=== PATIENT | female | born 1955 | race Caucasian/White ===

== ENCOUNTER → 2017-04-01 | Outpatient (REF) | payer OTHER ==
[~2017-04-01] MED LIST: AMOX500C PO; HYDR12.55 PO; IBUP60TA PO; LISI-538 PO; LORT5TAB PO; METO1TAB32 PO; MOM30SS PO; TYLE325T5 PO
[2017-04-01 17:52] LABS: BASO % 0.5 % (0.0-1.0); EOS # 0.1 K/mm3 (0.0-0.50); EOS % 0.8 % (0.0-3.0); LARGE UNSTAINED CELL # 0.1 K/mm3 (0.0-0.4); LARGE UNSTAINED CELL % 1.1 % (0.0-4.0); MEAN CORPUSCULAR HEMOGLOBIN 32.8 pg (27.0-33.0); MEAN CORPUSCULAR HGB CONC 34.5 g/dl (32.0-36.5); MEAN CORPUSCULAR VOLUME 95.2 fl (80.0-96.0); MONO # 0.4 K/mm3 (0.0-0.8); MONO % 4.6 % (0.0-5.0); NEUTROPHILS # 5.8 K/mm3 (1.8-7.7); PLATELET COUNT, AUTOMATED 446 k/mm3 (150-450); RED CELL DISTRIBUTION WIDTH 12.4 % (11.5-14.5); WHITE BLOOD COUNT 8.3 K/mm3 (4.0-10.0)
[2017-04-01 18:26] LABS: ALBUMIN 3.7 GM/DL (3.2-5.2); ALBUMIN/GLOBULIN RATIO 1.19 (1.00-1.93); ALKALINE PHOSPHATASE 92 U/L (45-117); ALT/SGPT 19 U/L (12-78); ANION GAP 7 MEQ/L (8-16); AST/SGOT 8 U/L (15-37); BILIRUBIN,TOTAL 0.6 MG/DL (0.2-1.0); BLOOD UREA NITROGEN 7 MG/DL (7-18); CALCIUM LEVEL 8.9 MG/DL (8.8-10.2); CARBON DIOXIDE LEVEL 28 MEQ/L (21-32); CHLORIDE LEVEL 98 MEQ/L (98-107); CHOLESTEROL LEVEL 200 MG/DL (<200); CREATININE FOR GFR 0.51 MG/DL (0.55-1.02); GLOMERULAR FILTRATION RATE > 60.0 (>45); GLUCOSE, FASTING 92 MG/DL (80-110); POTASSIUM SERUM 4.6 MEQ/L (3.5-5.1); SODIUM LEVEL 133 MEQ/L (136-145); TOTAL PROTEIN 6.8 GM/DL (6.4-8.2); TRIGLYCERIDES LEVEL 113 MG/DL (<150)
== END ==
LOC: M SFHCCLAY 13:27
PROVIDERS: ATTEND Physician Assistant
DX: I10 Essential (primary) hypertension (principal); M81.0 Age-related osteoporosis without current pathological fracture; Z78.0 Asymptomatic menopausal state

== ENCOUNTER → 2018-09-06 | Outpatient (CLI) | payer OTHER ==
--- NOTE | 2018-09-06 18:11 | REP ---
Clinical: Hypertension. Technique: PA and lateral. Comparison: 12/31/2013. Findings: Mediastinum and cardiac silhouette are within normal limits and stable. Lung warren demonstrate chronic stable interstitial changes. Linear fibroatelectatic changes in the left base identified on lateral radiograph. No effusion. No pneumothorax. Skeletal structures demonstrate advanced osteopenia and degenerative changes with subtle compression deformities suggested of multiple mid-thoracic vertebral bodies. The patient is noted to be status post left mastectomy and axillary node dissection. Impression: 1. Linear fibroatelectatic changes at the left base best identified on lateral radiograph. 2. Osteopenia and degenerative changes with findings to suggest subtle compression deformities of multiple thoracic vertebral bodies which are of indeterminate age.
--- NOTE | 2018-09-06 18:13 | REP ---
Clinical: Osteoporosis with possible pathologic fracture. Technique: AP, lateral, bilateral oblique and coned-down views of the lumbosacral spine. Findings: Evaluation is severely limited due to osteopenia, diffuse advanced multilevel degenerative changes and overlying soft tissue opacities. Multiple lumbar compression deformities of indeterminate age are suggested. Impression: Advanced osteopenia and degenerative changes with multilevel compression deformities of indeterminate age. Consider further evaluation with CT or MRI if necessary.
--- NOTE | 2018-09-06 18:17 | REP ---
Clinical: Osteoporosis. Evaluate for pathological fracture. Technique: AP, lateral, swimmers views of the thoracic spine. Findings: Evaluation is limited by advanced osteopenia, multilevel degenerative changes, and technique. Multilevel compression deformities of indeterminate age are identified. Impression: Advanced osteopenia and degenerative changes with multilevel compression deformities of indeterminate age. Consider CT or MRI if further evaluation is necessary.
== END ==
LOC: M CLY 09:34
PROVIDERS: ATTEND Physician Assistant
DX: I10 Essential (primary) hypertension (principal); M54.5 Low back pain; M81.0 Age-related osteoporosis without current pathological fracture; M85.9 Disorder of bone density and structure, unspecified

== ENCOUNTER → 2018-09-06 | Outpatient (REF) | payer OTHER ==
[2018-09-06 17:06] LABS: BASO % 0.3 % (0.0-1.0); EOS % 0.2 % (0.0-3.0); HEMATOCRIT 40.3 % (36.0-47.0); HEMOGLOBIN 14.7 g/dl (12.0-15.5); LYMPH # 1.4 10^3/uL (1.5-4.5); LYMPH % 14.8 % (24.0-44.0); MEAN CORPUSCULAR HEMOGLOBIN 32.7 pg (27.0-33.0); MEAN CORPUSCULAR HGB CONC 36.5 g/dl (32.0-36.5); MEAN CORPUSCULAR VOLUME 89.8 fl (80.0-96.0); MONO # 0.8 10^3/uL (0.0-0.8); MONO % 8.2 % (0.0-5.0); NEUTROPHILS # 6.9 10^3/uL (1.8-7.7); NEUTROPHILS % 75.8 % (36.0-66.0); PLATELET COUNT, AUTOMATED 417 10^3/uL (150-450); RED BLOOD COUNT 4.49 10^6/uL (4.00-5.40); WHITE BLOOD COUNT 9.2 10^3/uL (4.0-10.0)
[2018-09-06 17:10] LABS: ALBUMIN 3.6 GM/DL (3.2-5.2); ALT/SGPT 22 U/L (12-78); BILIRUBIN,TOTAL 0.8 MG/DL (0.2-1.0); BLOOD UREA NITROGEN 6 MG/DL (7-18); CALCIUM LEVEL 8.8 MG/DL (8.8-10.2); CARBON DIOXIDE LEVEL 30 MEQ/L (21-32); CHLORIDE LEVEL 86 MEQ/L (98-107); CHOLESTEROL LEVEL 141 MG/DL (<200); CHOLESTEROL RISK RATIO 3.065 (<5); CREATININE FOR GFR 0.51 MG/DL (0.55-1.30); GLOMERULAR FILTRATION RATE > 60.0 (>45); GLUCOSE, FASTING 105 MG/DL (70-100); HDL CHOLESTEROL 46 MG/DL (>40); LDL CHOLESTEROL 79 MG/DL (<100); NON-HDL-C 95 MG/DL; NT-PRO BNP 84 PG/ML (<125); POTASSIUM SERUM 3.6 MEQ/L (3.5-5.1); SODIUM LEVEL 125 MEQ/L (136-145); TOTAL 25(OH) VITAMIN D 49.5 NG/ML (30.0-100.0); TOTAL PROTEIN 6.3 GM/DL (6.4-8.2); TRIGLYCERIDES LEVEL 80 MG/DL (<150)
== END ==
LOC: M SFHCCLAY 09:24
PROVIDERS: ATTEND Physician Assistant
DX: R60.0 Localized edema (principal); I10 Essential (primary) hypertension; M81.0 Age-related osteoporosis without current pathological fracture

== ENCOUNTER → 2018-09-13 | Outpatient (REF) | payer OTHER ==
[2018-09-13 18:24] LABS: BLOOD UREA NITROGEN 8 MG/DL (7-18); CALCIUM LEVEL 8.9 MG/DL (8.8-10.2); CARBON DIOXIDE LEVEL 25 MEQ/L (21-32); CHLORIDE LEVEL 90 MEQ/L (98-107); CREATININE FOR GFR 0.46 MG/DL (0.55-1.30); GLOMERULAR FILTRATION RATE > 60.0 (>45); GLUCOSE, FASTING 93 MG/DL (70-100); POTASSIUM SERUM 4.1 MEQ/L (3.5-5.1); SODIUM LEVEL 126 MEQ/L (136-145)
== END ==
LOC: M SFHCCAPE 10:54
PROVIDERS: ATTEND Nurse Practitioner Family
DX: E87.1 Hypo-osmolality and hyponatremia (principal)

== ENCOUNTER → 2018-10-30 | Outpatient (REF) | payer OTHER ==
[2018-10-30 17:29] LABS: ALBUMIN 3.6 GM/DL (3.2-5.2); ALT/SGPT 17 U/L (12-78); BILIRUBIN,TOTAL 0.7 MG/DL (0.2-1.0); BLOOD UREA NITROGEN 5 MG/DL (7-18); CALCIUM LEVEL 8.7 MG/DL (8.8-10.2); CARBON DIOXIDE LEVEL 25 MEQ/L (21-32); CHLORIDE LEVEL 94 MEQ/L (98-107); CREATININE FOR GFR 0.37 MG/DL (0.55-1.30); GLOMERULAR FILTRATION RATE > 60.0 (>45); GLUCOSE, FASTING 83 MG/DL (70-100); MAGNESIUM LEVEL 1.8 MG/DL (1.8-2.4); POTASSIUM SERUM 4.4 MEQ/L (3.5-5.1); SODIUM LEVEL 130 MEQ/L (136-145); TOTAL PROTEIN 6.2 GM/DL (6.4-8.2)
== END ==
LOC: M SFHCCAPE 11:51
PROVIDERS: ATTEND Physician Assistant
DX: E87.1 Hypo-osmolality and hyponatremia (principal); E87.6 Hypokalemia

== ENCOUNTER → 2019-06-07 | Outpatient (REF) | payer MEDICARE, OTHER ==
[~2019-06-07] MED LIST changes: +IBUP600T42 PO; -IBUP60TA PO
[2019-06-07 17:23] LABS: BASO % 0.4 % (0.0-1.0); EOS # 0.1 10^3/uL (0.0-0.5); EOS % 0.8 % (0.0-3.0); HEMATOCRIT 43.9 % (36.0-47.0); HEMOGLOBIN 15.4 g/dl (12.0-15.5); LYMPH # 1.8 10^3/uL (1.5-5.0); LYMPH % 24.9 % (24.0-44.0); MEAN CORPUSCULAR HEMOGLOBIN 32.7 pg (27.0-33.0); MEAN CORPUSCULAR HGB CONC 35.1 g/dl (32.0-36.5); MEAN CORPUSCULAR VOLUME 93.2 fl (80.0-96.0); MONO # 0.4 10^3/uL (0.0-0.8); MONO % 5.9 % (0.0-5.0); NEUTROPHILS # 4.9 10^3/uL (1.5-8.5); NEUTROPHILS % 67.6 % (36.0-66.0); PLATELET COUNT, AUTOMATED 381 10^3/uL (150-450); RED BLOOD COUNT 4.71 10^6/uL (4.00-5.40); WHITE BLOOD COUNT 7.3 10^3/uL (4.0-10.0)
[2019-06-07 17:41] LABS: ALBUMIN 3.9 GM/DL (3.2-5.2); ALT/SGPT 17 U/L (12-78); BILIRUBIN,TOTAL 1.1 MG/DL (0.2-1.0); BLOOD UREA NITROGEN 6 MG/DL (7-18); CARBON DIOXIDE LEVEL 27 MEQ/L (21-32); CHLORIDE LEVEL 92 MEQ/L (98-107); CREATININE FOR GFR 0.46 MG/DL (0.55-1.30); GLOMERULAR FILTRATION RATE > 60.0 (>45); GLUCOSE, FASTING 85 MG/DL (70-100); POTASSIUM SERUM 4.4 MEQ/L (3.5-5.1); SODIUM LEVEL 127 MEQ/L (136-145); TOTAL PROTEIN 6.4 GM/DL (6.4-8.2)
== END ==
LOC: M SFHCCAPE 09:23
PROVIDERS: ATTEND Physician Assistant
DX: E87.1 Hypo-osmolality and hyponatremia (principal); I10 Essential (primary) hypertension